=== PATIENT | female | born 1970 | race African-American/Black ===

== ENCOUNTER 2020-03-29 01:12 | Emergency (ER) | payer OTHER ==
[~2020-03-29] VITALS: Ht 167.6 cm; Wt 110.0 kg
[2020-03-29 01:13] VITALS: BP 165/78
--- NOTE | 2020-03-29 01:26 | NUR ---
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
--- NOTE | 2020-03-29 03:40 | NUR ---
Patient given discharge instructions and they have confirmed that they understand the instructions. Patient ambulatory with steady gait.
== END 2020-03-29 03:42 | disposition home or self-care (01) ==
LOC: ED 01:49
DX: G89.11 Acute pain due to trauma (principal); M25.572 Pain in left ankle and joints of left foot; M25.562 Pain in left knee; I10 Essential (primary) hypertension; W01.0XXA Fall on same level from slipping, tripping and stumbling without subsequent striking against object, initial encounter; Y93.01 Activity, walking, marching and hiking; Y92.488 Other paved roadways as the place of occurrence of the external cause; Y99.8 Other external cause status
CPT/HCPCS: 99284